=== PATIENT | female | born 1960 | race African-American/Black ===

== ENCOUNTER 2020-11-19 13:02 | Observation (INO) | payer OTHER ==
[~2020-11-19] VITALS: Ht 134.6 cm; Wt 41.0 kg
--- NOTE | 2020-11-19 13:20 | NUR ---
PATIENT AMBULATED TO ROOM WITH STEADY GAIT AND PHYSICIAN NOTIFIED OF PATIENT STATUS
[2020-11-19 14:20] LABS: URINE BILIRUBIN - DIPSTICK NEGATIVE (NEGATIVE); URINE BLOOD DIPSTICK TRACE-INTACT (NEGATIVE); URINE COLOR YELLOW; URINE GLUCOSE - DIPSTICK NEGATIVE (NEGATIVE); URINE KETONE NEGATIVE (NEGATIVE); URINE LEUK ESTERASE TRACE (NEGATIVE); URINE NITRITE - DIPSTICK NEGATIVE (Negative); URINE PROTEIN - DIPSTICK 30 mg/dL (NEG-TRACE); URINE SPECIFIC GRAVITY >=1.030; URINE UROBILINOGEN - DIPSTICK 0.2 E.U./dL (0.2)
--- NOTE | 2020-11-19 14:20 | NUR ---
RESTING ON STRETCHER. CALL HARTMANN WITHIN REACH. FAMILY AT BEDSIDE.
[2020-11-19 14:21] LABS: URINE BACTERIA FEW hpf; URINE EPITHELIAL CELLS MODERATE EPI/hpf (0-FEW); URINE MUCUS MODERATE hpf (NONE-FEW); URINE RBC 0-2 RBC/hpf (0-5); URINE WBC 0-2 WBC/hpf (0-5)
[2020-11-19 14:30] LABS: ALBUMIN 4.3 g/dL (3.2-5.0); BILIRUBIN, TOTAL 0.3 mg/dL (0.0-1.4); BUN 23 mg/dL (8-23); BUN/CREATININE RATIO 20 (12-20 (CALC)); CHLORIDE 104 mmol/l (95-108); CREATININE 1.1 mg/dL (0.5-1.0); GFR 50 ML/MIN (>=60 (CALC)); GFR FOR AFR.AMER. > 60 ML/MIN (>=60 (CALC)); LIPASE 166 u/l (23-300); POTASSIUM 3.6 mmol/l (3.5-5.1); SODIUM 137 mmol/l (137-146); TOTAL PROTEIN 7.9 g/dL (6.3-8.2)
[2020-11-19 14:31] LABS: ALKALINE PHOSPHATASE 74 u/l (38-126); ANION GAP 9 (6-22 (CALC)); CARBON DIOXIDE 28 mmol/l (22-30); SGOT/AST 30 u/l (9-36)
[2020-11-19 14:35] LABS: HEMATOCRIT 38.6 % (37.0-47.0); HEMOGLOBIN 11.8 g/dl (12.0-16.0); IMMATURE GRANULOCYTES 0.5 % (0.0-5.0); MEAN CORPUSCULAR HGB CONC 30.6 g/dL CAL (32.0-36.0); NEUT# 9.8 thou/uL (2.00-7.15); RED BLOOD COUNT 4.54 mill/uL (4.20-5.60); RED CELL DISTRI WIDTH 13.5 % (11.5-15.5)
--- NOTE | 2020-11-19 15:22 | NUR ---
TO RADIOLOGY WITH KNOBBER IN STABLE CONDITION
--- NOTE | 2020-11-19 16:20 | NUR ---
RESTING ON STRETCHER. CALL HARTMANN WITHIN REACH. AWAITING DISPO
--- NOTE | 2020-11-19 17:20 | NUR ---
RESTING ON STRETCHER. FAMILY AT BEDSIDE.
--- NOTE | 2020-11-19 18:44 | NUR ---
FLEETS ENEMA INSTILLED WHILE LYING ON LEFT POSITION. PT TOLERATED WELL.
--- NOTE | 2020-11-19 19:01 | NUR ---
REPORT GIVEN TO ROBBY MANZANO
--- NOTE | 2020-11-19 19:25 | NUR ---
ICT ANALYST IN ROOM TO DISCUSS CLINICAL FINDINGS WITH PT. AND TO ALSO MAKE HER AWARE OF ADMISSION. VERBALIZED UNDERSTANDING.
--- NOTE | 2020-11-19 20:11 | NUR ---
Admission Note Report Given to: SHILOH BUSTAMANTE Transported by: Wheelchair X Stretcher Transported with: X Nurse Transporter X Patent IV O2 Note Keeper Location: ICU X [facility]
--- NOTE | 2020-11-19 20:12 | NUR ---
PT. TRANSFERED TO [facility], NO C/O.
--- NOTE | 2020-11-19 20:30 | NUR ---
PT ARRIVED TO MED SURG UNIT VIA WC ACCOMPANIED BY ED NURSE. PT SELF AMBULATED TO RESTROOM AND BACK TO THE BED. BSC PLACED NEXT TO THE BED AND PT PROVIDED COMFORT MEASURES. ASSESSMENT COMPLETED AT THIS TIME ALSO. ABD IS SOFT TENDER ONLY TO RLQ. ACTIVE BOWEL SOUNDS THROUGHOUT WITH HYPOACTIVE SOUNDS TO RLQ. PT REPORTS MINIMAL OUTPUT IN ED AND IS ASKING FOR PAIN MEDICATION AT THIS TIME. WILL NOTIFY PHYSICIAN FOR ORDERS. TYLENOL OFFERED, REFUSED. PO FLUIDS PROVIDED AND PT ORIENTED TO ROOM, CALL SYSTEM, LIGHTS AND BED. V/S ASSESSED, BP ELEVATED AT 166/73 WITH HR 71. RESP EVEN AND NON-LABORED @18.
[2020-11-19 20:45] VITALS: BP 166/73
--- NOTE | 2020-11-19 21:03 | NUR ---
PHYSICIAN NOTIFIED OF REQUEST FOR PAIN MEDICATIONS AND ELEVATED BP. NEW ORDERS RECEIVED AT THIS TIME.
--- NOTE | 2020-11-19 22:10 | NUR ---
AWAITING FOR PHARMACY TO VERIFY PAIN MEDICATION ORDERS. I HAVE CALLED AND STILL CANNOT OBTAIN VERIFICATION OF MEDICATION. NO CLARIFICATION NEEDED, PHYSICIAN PLACED ORDER IN COMPUTER HIMSELF. SPOKE WITH DESTIN REGARDING ORDER NEEDING PROCESSED AND WAS TOLD "OKAY."
--- NOTE | 2020-11-19 22:38 | NUR ---
STILL AWAITING PHARMACY TO VERIFY LORTAB FOR PAIN, I INFORMED THE PT THAT ORDERS WERE RECEIVED AND I WOULD BRING IT FAST I WAS ABLE TO GET PHARMACY TO APPROVE. SHE VERBALIZED UNDERSTANDING. APOLOGIES WERE MADE BY CLEAN ROOM TECHNICIAN TO PT FOR THE DELAY. PT APPEARS TO BE RELAXING AT THIS TIME.
--- NOTE | 2020-11-20 02:24 | NUR ---
PT IS SLEEPING AT THIS TIME. NO S/O DISTRESS NOTED.CALL LIGHT AT SIDE.
[2020-11-20 04:00] VITALS: BP 140/70
--- NOTE | 2020-11-20 05:05 | NUR ---
pt sleeping, ivf replenished at this time and pump cleared. No s/o distress noted. call light w/in reach.
[2020-11-20 07:12] VITALS: BP 117/72
--- NOTE | 2020-11-20 07:12 | NUR ---
PATIENT LAYING IN BED AT THIS TIME. PATIENT STATES THAT HER PAIN LEVEL IS ONLY A "3" OUT OF THE PAIN SCALE OF 0-10. PATIENT STATES THAT HER PAIN IS MORE "TENDERERNESS' ON HER RIGHT SIDE. PATIENT IS ALERT AND ORIENTED AT THIS TIME. DRILLING AND PRODUCTION SUPERINTENDENT DONE SEE INTERVENTIONS. SIDERAILS ARE UP X 2 AND CALL LIGHT IS WITHIN REACH. PATIENT DENIES ANY NEEDS AT THIS TIME.
[2020-11-20 08:52] VITALS: BP 117/72
--- NOTE | 2020-11-20 09:49 | NUR ---
PATIENT GIVEN 30ML OF MILK OF MAG AT THIS TIME AND PRUNE JUICE PER PATIENTS REQUEST.
[2020-11-20] MEDS ORDERED: NORVASC5 M1 PO (11:13)
--- NOTE | 2020-11-20 12:00 | NUR ---
PATIENT HAD LARGE BROWN SOFT BOWEL MOVEMENT PATIENT STATES "I FEEL SO MUCH BETTER". PATIENT D/C'D AT THIS TIME. IV REMOVED AT THIS TIME AND IV CATH TIP INTACT.
--- NOTE | 2020-11-20 13:23 | NUR ---
Discharge instructions given. Patient verbalizes understanding of same. Discharged in stable condition via Wheelchair to Home with family. All belongings sent with pt.
== END 2020-11-20 13:23 | disposition home or self-care (01) | DRG 392 ==
LOC: ED 13:02 → ED-I 19:28 → ED 19:39 → MS2 19:40
PROVIDERS: ADMIT Internal Medicine; ATTEND Internal Medicine
DX: K59.00 Constipation, unspecified (principal); I10 Essential (primary) hypertension; D64.9 Anemia, unspecified; Z20.822 Contact with and (suspected) exposure to COVID-19
CPT/HCPCS: G0378; J1650; Q9967